=== PATIENT | male | born 1955 | race Caucasian/White ===

== ENCOUNTER 2018-08-06 18:27 | Observation (INO) | payer MEDICAID, OTHER ==
[~2018-08-06] VITALS: Ht 180.3 cm; Wt 62.4 kg
[2018-08-06] MEDS ORDERED: SODIUM CHLORIDE FLUSH 10ML SYR IVF ONE (20:00)
[2018-08-06] MEDS ORDERED: KETOROLAC 30 MG/1 ML IVPush ONE (20:00)
[2018-08-06 20:03] LABS: BASOPHILS # (AUTO) 0.04 x10^3/uL (0-0.1); BASOPHILS % (AUTO) 0 % (0-1); EOSINOPHILS # (AUTO) 0.17 x10^3/uL (0-0.4); EOSINOPHILS % (AUTO) 2 % (1-7); LYMPHOCYTES # (AUTO) 2.75 x10^3/uL (1-3.4); LYMPHOCYTES % (AUTO) 27 % (22-44); MD NO; MEAN CORPUSCULAR HEMOGLOBIN 30.9 pg (27.5-34.5); MEAN CORPUSCULAR HGB CONC 33.9 g/dL (33.2-36.2); MEAN CORPUSCULAR VOLUME 91.1 fL (81-97); MEAN PLATELET VOLUME 7.7 fL (7.4-10.4); MONOCYTES # (AUTO) 0.48 x10^3/uL (0.2-0.8); MONOCYTES % (AUTO) 5 % (2-9); NEUTROPHILS # (AUTO) 6.74 x10^3/uL (1.8-6.8); NEUTROPHILS % (AUTO) 66 % (42-75); PLATELET COUNT 338 x10^3/uL (130-400); RED BLOOD COUNT 4.04 x10^6/uL (4.38-5.82); RED CELL DISTRIBUTION WIDTH 14.7 % (9.4-14.8)
[2018-08-06] MEDS ORDERED: KETOROLAC 30 MG/1 ML ONE (20:05)
[2018-08-06 20:09] LABS: ALBUMIN 3.1 g/dL (3.4-5.0); ANION GAP 7 mmol/L (5-15); CALCIUM 9.1 mg/dL (8.5-10.1); CHLORIDE 106 mmol/L (98-107); CREATININE 0.99 mg/dL (0.7-1.3)
[2018-08-06] MEDS ORDERED: SODIUM CHLORIDE 0.9% 1,000 ML IV ONE ×2 (21:13→21:34)
[2018-08-06 21:47] LABS: INTERNATIONAL NORMALIZED RATIO 1.06 (0.93-1.1)
[2018-08-06] MEDS ORDERED: SODIUM CHLORIDE FLUSH 10ML SYR IVF PRN (22:00)
[2018-08-06 22:06] VITALS: BP 136/82
[2018-08-06] MEDS: SODIUM CHLORIDE 0.9% 1,000 ML IV SCH (22:13)
[2018-08-06] MEDS ORDERED: ONDANSETRON 2MG/ML, 2ML IVPush PRN (22:30)
[2018-08-06] MEDS ORDERED: KETOROLAC 30 MG/1 ML IV PRN (22:30)
[2018-08-06] MEDS ORDERED: ACETAMINOPHEN 325 MG TABLET PO PRN (22:30)
[2018-08-06] MEDS ORDERED: BISACODYL 10 MG SUPP PR PRN (22:30)
[2018-08-06] MEDS ORDERED: POLYETHYLENE GLYCOL 17 GM PACKET PO PRN (22:30)
[2018-08-06] MEDS: HEPARIN 5,000 UNITS/ML, 1ML SQ SCH (23:05)
[2018-08-06] MEDS: NICOTINE 14MG/24 HR PATCH.TD24 TD SCH (23:06)
[2018-08-07 01:21] VITALS: BP 131/75
[2018-08-07] MEDS: HEPARIN 5,000 UNITS/ML, 1ML SQ SCH ×3 (05:19→22:16)
[2018-08-07] MEDS: SODIUM CHLORIDE 0.9% 1,000 ML IV SCH ×2 (06:24→17:41)
[2018-08-07 07:33] VITALS: BP 143/86
[2018-08-07 07:46] LABS: ALBUMIN 2.8 g/dL (3.4-5.0); ANION GAP 5 mmol/L (5-15); CALCIUM 8.7 mg/dL (8.5-10.1); CHLORIDE 107 mmol/L (98-107)
[2018-08-07 07:51] LABS: ALANINE AMINOTRANSFERASE 10 U/L (12-78); ALKALINE PHOSPHATASE 61 U/L (45-117); BILIRUBIN,TOTAL 0.7 mg/dL (0.2-1.0); CREATININE 0.96 mg/dL (0.7-1.3); TOTAL PROTEIN 6.5 g/dL (6.4-8.2)
[2018-08-07 08:45] LABS: BASOPHILS # (AUTO) 0.03 x10^3/uL (0-0.1); BASOPHILS % (AUTO) 1 % (0-1); EOSINOPHILS # (AUTO) 0.15 x10^3/uL (0-0.4); EOSINOPHILS % (AUTO) 2 % (1-7); LYMPHOCYTES # (AUTO) 1.79 x10^3/uL (1-3.4); LYMPHOCYTES % (AUTO) 25 % (22-44); MD NO; MEAN CORPUSCULAR HEMOGLOBIN 30.4 pg (27.5-34.5); MEAN CORPUSCULAR HGB CONC 33.8 g/dL (33.2-36.2); MEAN PLATELET VOLUME 8.2 fL (7.4-10.4); MONOCYTES # (AUTO) 0.38 x10^3/uL (0.2-0.8); MONOCYTES % (AUTO) 5 % (2-9); NEUTROPHILS # (AUTO) 4.92 x10^3/uL (1.8-6.8); NEUTROPHILS % (AUTO) 68 % (42-75); PLATELET COUNT 294 x10^3/uL (130-400); RED BLOOD COUNT 3.87 x10^6/uL (4.38-5.82); RED CELL DISTRIBUTION WIDTH 14.7 % (9.4-14.8)
[2018-08-07] MEDS: SENNA/DOCUSATE TABLET PO SCH (09:00)
[2018-08-07 14:30] VITALS: BP 112/67
[2018-08-07 20:12] VITALS: BP 134/73
[2018-08-07] MEDS: NICOTINE 14MG/24 HR PATCH.TD24 TD SCH (22:16)
[2018-08-08] MEDS: SODIUM CHLORIDE 0.9% 1,000 ML IV SCH (03:19)
[2018-08-08] MEDS: HEPARIN 5,000 UNITS/ML, 1ML SQ SCH (06:11)
[2018-08-08 08:10] VITALS: BP 148/73
[2018-08-08] MEDS: SENNA/DOCUSATE TABLET PO SCH (08:48)
== END 2018-08-08 10:20 | disposition home or self-care (01) ==
LOC: ED 21:21 → EDIP 21:34 → INTOOBSV 21:34 → 3NE 22:00 → 3NW 08-07 10:08
PROVIDERS: ADMIT Hospitalist; ATTEND Hospitalist
DX: C10.9 Malignant neoplasm of oropharynx, unspecified (principal); E44.1 Mild protein-calorie malnutrition; C79.89 Secondary malignant neoplasm of other specified sites; C06.9 Malignant neoplasm of mouth, unspecified; F17.210 Nicotine dependence, cigarettes, uncomplicated; R00.1 Bradycardia, unspecified; D64.9 Anemia, unspecified; H92.01 Otalgia, right ear; Z68.1 Body mass index [BMI] 19.9 or less, adult; Z86.74 Personal history of sudden cardiac arrest; Z80.9 Family history of malignant neoplasm, unspecified; Z82.49 Family history of ischemic heart disease and other diseases of the circulatory system
CPT/HCPCS: 36415; 70100; 70360; 70491; 80048; 80053; 82040; 82728; 83540; 83550; 83735; 84100; 84466; 85025; 85610; 85730; 87081; 87880; 96374; 99285; G0378; J1885; J7030